=== PATIENT | male | born 1990 | race Caucasian/White ===

== ENCOUNTER → 2021-12-07 | Outpatient (CLI) | payer OTHER ==
--- NOTE | 2021-12-07 17:01 | US ---
EXAMINATION TYPE: US groin LT DATE OF EXAM: 12/07/2021 COMPARISON: NONE CLINICAL HISTORY: 31-year-old male K40.90 UNIL INGUINAL HERNIA. TECHNIQUE: Multiple sonographic images of the left inguinal region to assess for inguinal hernia. Bridget alejo maneuver was utilized. FINDINGS: Cocoa Press Operator notes: No abnormalities seen in left groin area. IMPRESSION: The kitchen bath designer during real-time scanning was unable to identify a left inguinal hernia. Valsalva man euver was utilized.
== END | disposition home or self-care (01) ==
LOC: RADUSWWP 14:52
PROVIDERS: ATTEND Family Medicine
DX: K40.90 Unilateral inguinal hernia, without obstruction or gangrene, not specified as recurrent (principal)